=== PATIENT | female | born 1960 | race Caucasian/White ===

== ENCOUNTER 2017-02-14 07:45 | Emergency (ER) | payer OTHER ==
[~2017-02-14] VITALS: Ht 156.2 cm; Wt 65.5 kg
[~2017-02-14 07:45] MED LIST: AMB/10 PO; CLON0.5T3 PO; CLON1TAB3 PO; CYM/30 PO; DOCU100C22 PO; FLUT0.0529 NAE; LPT40 PO; LSN/10125 PO; POLY1POW2 PO
[2017-02-14 07:53] VITALS: TEMP 36.4; Ht 156.2 cm; Wt 65.5 kg
--- NOTE | 2017-02-14 08:28 | EMERGENCY ROOM VISIT NOTE ---
History Report prepared by Mitzy: Daniel Estrella Under the Supervision of: Dr. Lisa Farris M.D. First contact with patient: 08:01 Chief Complaint: URINARY SYMPTOMS Stated Complaint: URINARY TRACT, SIATIC NERVE Nursing Triage Summary: Urinary symptoms x 1 week. Frequency, pain. Sciatic pain. Left leg. History of Present Illness The patient is a 56 year old female who presents to the Emergency Room with complaints of urinary symptoms that began 1 week ago. She rates her pain a 10/ 10 in severity. She has chronic sciatica that is currently causing her pain into her left leg. She also has chronic back pain and right sided numbness secondary to a previous back surgery. Recently, she has been having a lot of relationship and home life problems which caused her to move out of her house quickly. She states this has worsened her back symptoms. She has not been sleeping well for the past two weeks as well. Her urinary symptoms began 1 week ago. She states that there is burning and difficulty with urination. Source of History: patient Onset: 1 week ago Position: other () Symptom Intensity: 10/10 Quality: sharp Timing: constant Associated Symptoms: + back pain, + numbness Review of Systems See HPI for pertinent positives & negatives. A total of 10 systems reviewed and were otherwise negative. Past Medical & Surgical Medical Problems: (1) Fibromyalgia (2) Hypertension (3) Kidney stone Family History Diabetes mellitus Heart disease Hypertension Social History Smoking Status: Current Every Day Smoker Smokeless Tobacco Use: Unknown Marital Status: single Housing Status: lives alone Current/Historical Medications Scheduled Cholecalciferol (Vitamin D), 1,000 MG PO DAILY Ciprofloxacin Hcl (Cipro), 500 MG PO BID Clonazepam (Klonopin), 2 TAB PO HS Docusate Sodium (Colace), 1 CAP PO DAILY Escitalopram Oxalate (Lexapro), 20 MG PO DAILY Garlic (Garlic), Unknown Dose PO DAILY Hydrochlorothiazide (Hctz), 25 MG PO DAILY Levothyroxine Sodium (Levothyroxine Sodium), 75 MCG PO DAILY Magnesium Oxide (Magnesium), 250 MG PO DAILY Omeprazole (Prilosec), 20 MG PO DAILY Scheduled PRN Clonazepam (Klonopin), 0.5-1 MG PO TID PRN for Anxiety Fluticasone Propionate (Nasal) (Flonase Allergy Relief), 1 SPRAY SERGIO DAILY PRN for ALLERGIC REACTION Hydrocodone-Acetaminophen (Lortab 7.5-325 mg), 1 TAB PO QID PRN for Pain Polyethylene Glycol 3350 (Bulk (Polyethylene Glycol 3350), 1 DOSE PO DAILY PRN for Constipation Allergies Coded Allergies: Iodinated Diagnostic Agents (Verified Allergy, Unknown, RASH, 02/14/17) Sulfa Drugs (Verified Allergy, Unknown, Breakout with sores, 02/14/17) Reported by PT Physical Exam Vital Signs Date Time Temp Pulse Resp B/P Pulse Ox O2 Delivery O2 Flow Rate FiO2 02/14/17 11:06 82 22 156/80 96 02/14/17 09:54 56 19 134/62 97 Room Air 02/14/17 07:53 36.4 70 16 153/78 95 Room Air Physical Exam Vital signs reviewed. General: Well-appearing female, holding lower abdomen. Crying. Anxious. HEENT: No scleral icterus, PERRLA, neck supple. Atraumatic. Cardiovascular: Regular rate and rhythm, no extra sounds. Pulmonary: Clear to auscultation bilaterally, normal work of breathing. Abdomen: Soft, mild tenderness to palpation, nondistended, positive bowel sounds. Musculoskeletal: Atraumatic, no peripheral edema. Neurologic: Patient awake alert and oriented x 3, full strength in all 4 extremities. Cranial nerves 2 through 12 grossly intact. Skin: Warm, dry, no rash Medical Decision & Procedures Laboratory Results Test 02/14/17 08:40 Urine Color YELLOW Urine Appearance CLEAR (CLEAR) Urine pH 7.0 (4.5-7.5) Urine Specific [place] 1.007 (1.000-1.030) Urine Protein NEG (NEG) Urine Glucose (UA) NEG (NEG) Urine Ketones NEG (NEG) Urine Occult Blood 1+ (NEG) Urine Nitrite NEG (NEG) Urine Bilirubin NEG (NEG) Urine Urobilinogen NEG (NEG) Urine Leukocyte Esterase MODERATE (NEG) Urine WBC (Auto) 10-30 /hpf (0-5) Urine RBC (Auto) 5-10 /hpf (0-4) Urine Hyaline Casts (Auto) 0 /lpf (0-5) Urine Epithelial Cells (Auto) 10-20 /lpf (0-5) Urine Bacteria (Auto) 4+ (NEG) Urine Opiates Screen POS (NEG) Urine Methadone, Qualitative NEG (NEG) Urine Barbiturates NEG (NEG) Urine Phencyclidine (PCP) Level NEG (NEG) Ur Amphetamine/Methamphetamine NEG (NEG) MDMA (Ecstasy) Screen NEG (NEG) Urine Benzodiazepines Screen NEG (NEG) Urine Cocaine Metabolite NEG (NEG) Urine Marijuana (THC) NEG (NEG) Laboratory results per my review. Medications Administered Medications (Trade) Dose Ordered Sig/Jeffrey Route Start Time Stop Time Status Last Admin Dose Admin Ciprofloxacin (Cipro Tab) 500 mg NOW STAT PO 02/14/17 10:09 02/14/17 10:10 DC 02/14/17 10:50 500 MG Ketorolac Tromethamine (Toradol Inj) 60 mg NOW STAT IM 02/14/17 10:19 02/14/17 10:20 DC 02/14/17 10:51 60 MG ED Course 08: Past medical records reviewed. The patient was evaluated in room B10. A complete history and physical examination was performed. 1009: Ordered Cipro Tab 500 mg PO 1019: Ordered Toradol Inj 60 mg IM 1054: Upon reevaluation, the patient appeared to have improvement of her symptoms. I discussed findings with her. She verbalized agreement of the treatment plan. She was discharged home. Medical Decision Differential diagnoses include cystitis, pyelonephritis, sciatica, fibromyalgia , and metabolic abnormality. This patient was evaluated and appeared to be in some discomfort. Physical examination is consistent with a suprapubic abdominal discomfort. There is no rebound or guarding. The patient's urinalysis is indicative of infection. This will be sent for culture. The patient was insistent on pain medication. She said "I need a morphine shot"but also admitted to driving to the hospital. The patient became irate when she was informed that she was not able to drive on narcotics. She stated that they "wake" her up. The patient was informed that she would not be receiving narcotics and stated "you are treating me like a drug addict." The patient receives regular hydrocodone prescriptions from her physician and states that this does not address her pain. Patient states she does not take her hydrocodone. Urine tox screen today shows positive opiates in the urine. She also admits to frequenting the [facility] which "does not help" me. She was given a dose of Cipro 500 mg orally and a prescription was sent to her pharmacy. Patient was advised to follow-up with her physician as soon as possible for reevaluation and return to the ER for worsening of her urinary symptoms or any medical concerns. Impression Primary Impression: Urinary tract infection Additional Impression: Pain syndrome, chronic Scribe Attestation The scribe's documentation has been prepared under my direction and personally reviewed by me in its entirety. I confirm that the note above accurately reflects all work, treatment, procedures, and medical decision making performed by me. Departure Information Dispostion Home / Self-Care Prescriptions Ciprofloxacin Hcl (CIPRO) 500 Mg Tab 500 MG PO BID, #6 TAB Prov: Lisa Farris M.D. 02/14/17 Referrals No Doctor, Assigned (PCP) Forms HOME CARE DOCUMENTATION FORM, IMPORTANT VISIT INFORMATION Patient Instructions [facility] Additional Instructions Diagnosis: UTI, pain syndrome Cipro 500 mg twice daily for 3 days. Drink plenty of fluids. Ibuprofen 600 mg every 6 hours as needed for pain with food. Follow up with your doctor upon return home. Return to emergency for worsening of symptoms or any medical concerns. Problem Qualifiers Primary Impression: Urinary tract infection Urinary tract infection type: acute cystitis
[2017-02-14] MEDS ORDERED: DOCU-94 PO (08:55)
[2017-02-14 09:22] LABS: URINE APPEARANCE CLEAR (CLEAR); URINE BILIRUBIN NEG (NEG); URINE COLOR YELLOW; URINE NITRITE NEG (NEG); URINE SPECIFIC GRAVITY 1.007 (1.000-1.030); UROBILINOGEN NEG (NEG); ZZUR CULT IF INDIC CLEAN CATCH YES
[2017-02-14 09:30] LABS: MANUAL MICROSCOPIC REQUIRED? NO; REVIEW REQ? NO
[2017-02-14 09:40] LABS: BENZODIAZEPINE, URINE NEG (NEG); COCAINE,URINE NEG (NEG); PHENCYCLIDINE, URINE NEG (NEG)
[2017-02-14] MEDS ORDERED: CIPROFLOXACIN 500 MG TAB PO STA (10:09)
[2017-02-14] MEDS ORDERED: KETOROLAC TROMETHAMINE 60 MG/2 ML VIAL IM STA (10:19)
[2017-02-14 11:06] VITALS: BP 156/80; PULSE 82; O2SAT 96
[2017-02-14] MEDS ORDERED: CIPR-255 PO (11:14)
[2017-02-16 10:46] LABS: COD UR 426 NG/ML (CUTOFF=50); HYDROCOD UR 55 NG/ML (CUTOFF=50); HYDROMOR UR NEGATIVE NG/ML (CUTOFF=50); MORPHINE UR 89 NG/ML (CUTOFF=50); NORHYDROCODONE CONF UR 96 NG/ML (CUTOFF=50); OXYMORPH UR NEGATIVE NG/ML (CUTOFF=50)
--- NOTE | 2017-02-16 11:04 | Pharmacy Progress Note ---
ED Pharmacist Culture FollowUp Date of Service: February 16, 2017. Patient was sent home with a prescription for ciprofloxacin, which should cover the E. coli growing from the patient's urine culture.
[2017-08-13] MEDS ORDERED: MAGN250T22 PO (08:55)
[2017-08-13] MEDS ORDERED: ESCI1TAB10 PO (08:55)
[2017-08-13] MEDS ORDERED: CLON1TAB3 PO (08:55)
[2017-08-13] MEDS ORDERED: GARL10007 PO (08:55)
[2017-08-13] MEDS ORDERED: HYDR25TA4 PO (08:55)
[2017-08-13] MEDS ORDERED: CHOL100010 PO (08:55)
[2017-08-13] MEDS ORDERED: FLUT0.15 NAE (08:55)
[2017-08-13] MEDS ORDERED: LEVO75TA5 PO (17:58)
[2017-08-13] MEDS ORDERED: HYDR-4331 PO (17:58)
[2017-08-13] MEDS ORDERED: OMEP20CA9 PO (17:58)
[2017-08-13] MEDS ORDERED: ATOR-22 PO (18:58)
[2017-08-13] MEDS ORDERED: DOCU-149 PO (18:58)
== END 2017-02-14 11:06 | disposition home or self-care (01) ==
LOC: C.EDB 07:47
DX: N30.00 Acute cystitis without hematuria (principal); G89.4 Chronic pain syndrome; R20.0 Anesthesia of skin; I10 Essential (primary) hypertension; M79.7 Fibromyalgia; Z79.899 Other long term (current) drug therapy; Z87.442 Personal history of urinary calculi; Z82.49 Family history of ischemic heart disease and other diseases of the circulatory system; Z83.3 Family history of diabetes mellitus; F17.200 Nicotine dependence, unspecified, uncomplicated